=== PATIENT | female | born 1935 | race Asian ===

== ENCOUNTER 2016-07-24 17:14 | Inpatient (IN) | payer MEDICARE, OTHER ==
[2016-07-24] MEDS ORDERED: OMEPRAZOLE20 M3 PO (18:44)
[2016-07-24] MEDS ORDERED: ASPIRIN325 M3 PO (18:46)
[2016-07-24] MEDS ORDERED: COREG6.25 M1 PO (18:46)
[2016-07-24] MEDS ORDERED: NORVASC5 M2 PO (18:46)
[2016-07-24] MEDS ORDERED: LASIX80 M1 PO (18:47)
[2016-07-24] MEDS ORDERED: ZYLOPRIM100 M1 PO (18:47)
[2016-07-24] MEDS ORDERED: CELEXA20 M2 PO (18:47)
[2016-07-24] MEDS ORDERED: SYNTHROID100 MC1 PO (18:48)
[2016-07-24] MEDS ORDERED: VITAMIN D350000 UNI1 PO (18:48)
[2016-07-24] MEDS ORDERED: PREDNISONE2.5 M1 PO (18:49)
[2016-07-24] MEDS ORDERED: NEURONTIN100 M1 PO (18:52)
[2016-07-24] MEDS ORDERED: NOVOLOG FL100 UNIT/2 SC (19:01)
[2016-07-24] MEDS ORDERED: LEVEMIR FL100 UNIT/2 PO (19:02)
[2016-07-24 19:52] LABS: BASO % 0.1 % (0-2); EOS % 0.5 % (0-7); EOSINOPHIL ABSOLUTE COUNT 0.1 tho/cmm (0.0-0.7); HCT-HEMATOCRIT 31.8 % (34.0-49.0); HGB-HEMOGLOBIN 10.7 gm/dl (12.0-15.5); IMMATURE GRANULOCYTES ABSOLUTE 0.06 tho/cmm (0-0.03); IMMATURE GRANULOCYTES PERCENT 0.4 % (0-0.3); LYMPH % 5.6 % (20-45); LYMPH ABSOLUTE COUNT 0.8 tho/cmm (0.8-4.5); MCH (MEAN CORPUSCULAR HGB) 31.6 pg (28.0-32.0); MCHC MEAN CORPUSCULAR HGB CONC 33.6 % (32.0-36.0); MCV (MEAN CELL VOLUME) 93.8 fl (82.0-96.0); MONO % 4.6 % (0-12); MONOCYTE ABSOLUTE COUNT 0.7 tho/cmm (0.0-1.2); NEUTROPHIL ABSOLUTE COUNT 13.3 tho/cmm (1.6-8.0); NEUTROPHIL-AUTOMATED 13.3 tho/cmm (1.6-8.0); NEUTROPHILS % 88.8 % (40-80); PLATELET COUNT 242 tho/cmm (150-450); RED BLOOD COUNT 3.39 mil/cmm (4.00-5.20); WHITE BLOOD COUNT 14.9 tho/cmm (4.0-10.0)
[2016-07-24 20:06] LABS: ALB/GLOB RATIO 0.8 (0.8-2.0); ALKALINE PHOSPHATASE 86 U/L (33-138); ALT/SGPT 27 U/L (12-78); ANION GAP 16 mmol/L (0-20); AST/SGOT 20 U/L (10-40); BILIRUBIN,TOTAL 0.6 mg/dl (0-1.5); BLOOD UREA NITROGEN 100 mg/dl (6-24); CALCIUM 6.8 mg/dl (8.5-10.5); CARBON DIOXIDE-VENOUS 26 mmol/L (22-32); CHLORIDE 94 mmol/l (96-110); CREATININE 3.59 mg/dl (0.50-1.10); GLUCOSE 429 mg/dL (70-110); MAGNESIUM 2.4 mg/dl (1.3-2.6); POTASSIUM 4.9 mmol/L (3.7-5.1); SODIUM 131 mmol/L (135-145); eGFR VALUE FOR BLACK 13 mL/Min
[2016-07-24 20:13] LABS: TSH-THYROID STIMULATING HORM. 1.22 uIU/ml (0.40-3.80)
[2016-07-25 06:56] LABS: BASO % 0.2 % (0-2); EOS % 1.5 % (0-7); EOSINOPHIL ABSOLUTE COUNT 0.2 tho/cmm (0.0-0.7); HCT-HEMATOCRIT 30.6 % (34.0-49.0); HGB-HEMOGLOBIN 10.3 gm/dl (12.0-15.5); IMMATURE GRANULOCYTES ABSOLUTE 0.06 tho/cmm (0-0.03); IMMATURE GRANULOCYTES PERCENT 0.5 % (0-0.3); LYMPH % 7.8 % (20-45); MCH (MEAN CORPUSCULAR HGB) 31.6 pg (28.0-32.0); MCHC MEAN CORPUSCULAR HGB CONC 33.7 % (32.0-36.0); MCV (MEAN CELL VOLUME) 93.9 fl (82.0-96.0); MEAN PLATELET VOLUME 10.2 cmc (9.4-12.4); MONO % 5.5 % (0-12); MONOCYTE ABSOLUTE COUNT 0.7 tho/cmm (0.0-1.2); NEUTROPHIL ABSOLUTE COUNT 10.9 tho/cmm (1.6-8.0); NEUTROPHIL-AUTOMATED 10.9 tho/cmm (1.6-8.0); NEUTROPHILS % 84.5 % (40-80); PLATELET COUNT 245 tho/cmm (150-450); RED BLOOD COUNT 3.26 mil/cmm (4.00-5.20); RED CELL DISTRIBUTION WIDTH 14.2 % (12.4-16.4); WHITE BLOOD COUNT 12.9 tho/cmm (4.0-10.0)
[2016-07-25 06:58] LABS: ALBUMIN 2.9 g/dl (3.5-5.0); ANION GAP 14 mmol/L (0-20); BLOOD UREA NITROGEN 93 mg/dl (6-24); CALCIUM 7.4 mg/dl (8.5-10.5); CARBON DIOXIDE-VENOUS 27 mmol/L (22-32); CHLORIDE 97 mmol/l (96-110); CREATININE 3.48 mg/dl (0.50-1.10); GLUCOSE 215 mg/dL (70-110); PHOSPHOROUS 4.9 mg/dl (2.5-4.9); POTASSIUM 4.1 mmol/L (3.7-5.1); SODIUM 134 mmol/L (135-145); eGFR VALUE FOR BLACK 13 mL/Min
[2016-07-25 08:45] LABS: BODY FLUID APPEARANCE HAZY (CLEAR); BODY FLUID COLOR YELLOW (COLORLESS); BODY FLUID TYPE DIALYSATE FLUID; BODY FLUID VOLUME 50 ml; BODY FLUID WBC COUNT 100 cmm
[2016-07-25 08:47] LABS: BODY FLUID LYMPHOCYTES 77 %; BODY FLUID MACROPHAGES 21 %; BODY FLUID NEUTROPHILS 2 %
[2016-07-25 14:23] LABS: BODY FLUID RBC COUNT <1000 cmm (0)
[2016-07-26 05:36] LABS: BODY FLUID APPEARANCE CLEAR (CLEAR); BODY FLUID COLOR COLORLESS (COLORLESS); BODY FLUID RBC COUNT <1000 cmm (0); BODY FLUID TYPE DIALYSATE; BODY FLUID VOLUME 3200 ml; BODY FLUID WBC COUNT 8 cmm
[2016-07-26 06:02] LABS: BODY FLUID LYMPHOCYTES 8 %; BODY FLUID MACROPHAGES 15 %; BODY FLUID MESOTHELIAL CELLS 60 %; BODY FLUID NEUTROPHILS 17 %
[2016-07-26 07:37] LABS: ANION GAP 13 mmol/L (0-20); BLOOD UREA NITROGEN 86 mg/dl (6-24); CALCIUM 7.5 mg/dl (8.5-10.5); CARBON DIOXIDE-VENOUS 30 mmol/L (22-32); CHLORIDE 98 mmol/l (96-110); CREATININE 3.48 mg/dl (0.50-1.10); GLUCOSE 245 mg/dL (70-110); PHOSPHOROUS 5.1 mg/dl (2.5-4.9); POTASSIUM 3.7 mmol/L (3.7-5.1); SODIUM 137 mmol/L (135-145); eGFR VALUE FOR BLACK 13 mL/Min
[2016-07-26] MEDS ORDERED: PLAQUENIL200 M1 PO (15:51)
[2016-07-26] MEDS ORDERED: COZAAR50 M1 PO (15:52)
[2016-07-27 06:47] LABS: ANION GAP 11 mmol/L (0-20); BLOOD UREA NITROGEN 78 mg/dl (6-24); CALCIUM 7.5 mg/dl (8.5-10.5); CARBON DIOXIDE-VENOUS 34 mmol/L (22-32); CHLORIDE 98 mmol/l (96-110); GLUCOSE 141 mg/dL (70-110); MAGNESIUM 2.4 mg/dl (1.3-2.6); PHOSPHOROUS 4.8 mg/dl (2.5-4.9); POTASSIUM 3.7 mmol/L (3.7-5.1); SODIUM 139 mmol/L (135-145)
[2016-07-27 07:18] LABS: CREATININE 3.73 mg/dl (0.50-1.10); eGFR VALUE FOR BLACK 12 mL/Min
[2016-07-28 05:10] LABS: HGB-HEMOGLOBIN 11.3 gm/dl (12.0-15.5); PLATELET COUNT 264 tho/cmm (150-450)
[2016-07-28 05:21] LABS: ANION GAP 11 mmol/L (0-20); BLOOD UREA NITROGEN 69 mg/dl (6-24); CALCIUM 7.4 mg/dl (8.5-10.5); CARBON DIOXIDE-VENOUS 32 mmol/L (22-32); CHLORIDE 101 mmol/l (96-110); CREATININE 3.76 mg/dl (0.50-1.10); GLUCOSE 138 mg/dL (70-110); MAGNESIUM 2.2 mg/dl (1.3-2.6); PHOSPHOROUS 4.5 mg/dl (2.5-4.9); POTASSIUM 3.9 mmol/L (3.7-5.1); SODIUM 140 mmol/L (135-145); eGFR VALUE FOR BLACK 12 mL/Min
[2016-07-28] MEDS ORDERED: ASPIRIN81 M1 PO (15:18)
[2016-07-28] MEDS ORDERED: [UNRECOGNIZED DRUG - OTHER] IR (15:23)
[2016-07-28] MEDS ORDERED: DIANEAL IR ×2 (15:23)
[2016-07-28] MEDS ORDERED: [UNRECOGNIZED DRUG - OTHER] IR (15:23)
== END 2016-07-28 16:34 | DRG 291 ==
LOC: CAR1 17:14 → 5WF 21:50
PROVIDERS: Internal Medicine Nephrology; Nurse Practitioner; Nurse Practitioner Family; ADMIT Internal Medicine Interventional Cardiology
DX: I13.2 Hypertensive heart and chronic kidney disease with heart failure and with stage 5 chronic kidney disease, or end stage renal disease (principal); I50.33 Acute on chronic diastolic (congestive) heart failure; N18.6 End stage renal disease; E11.22 Type 2 diabetes mellitus with diabetic chronic kidney disease; R06.00 Dyspnea, unspecified; I27.2 Other secondary pulmonary hypertension; E11.65 Type 2 diabetes mellitus with hyperglycemia; E87.1 Hypo-osmolality and hyponatremia; E03.9 Hypothyroidism, unspecified; D63.1 Anemia in chronic kidney disease; E83.51 Hypocalcemia; I07.1 Rheumatic tricuspid insufficiency; M10.9 Gout, unspecified; E78.5 Hyperlipidemia, unspecified; I25.10 Atherosclerotic heart disease of native coronary artery without angina pectoris; E66.9 Obesity, unspecified; Z95.2 Presence of prosthetic heart valve
CPT/HCPCS: G8988-GO-CJ; G8989-GO-CJ; J0610; J1650; J1815; J1940; J7512

== ENCOUNTER 2016-09-21 03:47 | Inpatient (IN) | payer MEDICARE, OTHER ==
[~2016-09-21 03:47] MED LIST: ASPIRIN325 M3 PO; ASPIRIN81 M1 PO; CELEXA20 M2 PO; COREG6.25 M1 PO; COZAAR50 M1 PO; DIANEAL IR; LASIX80 M1 PO; LEVEMIR FL100 UNIT/2 PO; NEURONTIN100 M1 PO; NORVASC5 M2 PO; NOVOLOG FL100 UNIT/2 SC; OMEPRAZOLE20 M3 PO; PLAQUENIL200 M1 PO; PREDNISONE2.5 M1 PO; SYNTHROID100 MC1 PO; VITAMIN D350000 UNI1 PO; ZYLOPRIM100 M1 PO; [UNRECOGNIZED DRUG - OTHER] IR; [UNRECOGNIZED DRUG - OTHER] IR
[2016-09-21] MEDS ORDERED: ASPIRIN325 M3 PO (03:53)
[2016-09-21 07:13] LABS: BASO % 0.3 % (0-2); BASO ABSOLUTE COUNT 0.1 tho/cmm (0.0-0.2); EOS % 1.8 % (0-7); EOSINOPHIL ABSOLUTE COUNT 0.3 tho/cmm (0.0-0.7); HCT-HEMATOCRIT 33.3 % (34.0-49.0); HGB-HEMOGLOBIN 10.8 gm/dl (12.0-15.5); IMMATURE GRANULOCYTES PERCENT 1.1 % (0-0.3); LYMPH % 8.8 % (20-45); LYMPH ABSOLUTE COUNT 1.6 tho/cmm (0.8-4.5); MCH (MEAN CORPUSCULAR HGB) 31.9 pg (28.0-32.0); MCHC MEAN CORPUSCULAR HGB CONC 32.4 % (32.0-36.0); MCV (MEAN CELL VOLUME) 98.2 fl (82.0-96.0); MEAN PLATELET VOLUME 9.1 cmc (9.4-12.4); MONOCYTE ABSOLUTE COUNT 0.9 tho/cmm (0.0-1.2); NEUTROPHIL ABSOLUTE COUNT 15.2 tho/cmm (1.6-8.0); NEUTROPHIL-AUTOMATED 15.2 tho/cmm (1.6-8.0); PLATELET COUNT 389 tho/cmm (150-450); RED BLOOD COUNT 3.39 mil/cmm (4.00-5.20); RED CELL DISTRIBUTION WIDTH 13.6 % (12.4-16.4); WHITE BLOOD COUNT 18.3 tho/cmm (4.0-10.0)
[2016-09-21 07:26] LABS: ANION GAP 13 mmol/L (0-20); BLOOD UREA NITROGEN 72 mg/dl (6-24); CALCIUM 8.7 mg/dl (8.5-10.5); CARBON DIOXIDE-VENOUS 31 mmol/L (22-32); CHLORIDE 100 mmol/l (96-110); CREATININE 2.22 mg/dl (0.50-1.10); GLUCOSE 78 mg/dL (70-110); MAGNESIUM 2.5 mg/dl (1.8-2.6); POTASSIUM 4.7 mmol/L (3.7-5.1); SODIUM 139 mmol/L (135-145); eGFR VALUE FOR BLACK 23 mL/Min
[2016-09-21 07:35] LABS: ESR-ERYTHROCYTE SED RATE >140 mm/hr (0-30)
[2016-09-21 07:54] LABS: PROCALCITONIN 0.41 ng/ml (0.05-0.09)
[2016-09-21] MEDS ORDERED: CELEBREX200 M1 PO (13:15)
--- NOTE | 2016-09-21 19:26 | NUR ---
VIRTUAL CARE NOTE: ASSESSMENT DEFERRED. PT. SLEEPING.
[2016-09-22 04:58] LABS: BASO % 0.2 % (0-2); BASO ABSOLUTE COUNT 0.1 tho/cmm (0.0-0.2); EOS % 1.3 % (0-7); EOSINOPHIL ABSOLUTE COUNT 0.3 tho/cmm (0.0-0.7); HCT-HEMATOCRIT 35.6 % (34.0-49.0); HGB-HEMOGLOBIN 11.7 gm/dl (12.0-15.5); IMMATURE GRANULOCYTES ABSOLUTE 0.23 tho/cmm (0-0.03); IMMATURE GRANULOCYTES PERCENT 0.9 % (0-0.3); LYMPH % 5.2 % (20-45); LYMPH ABSOLUTE COUNT 1.4 tho/cmm (0.8-4.5); MCH (MEAN CORPUSCULAR HGB) 32.5 pg (28.0-32.0); MCHC MEAN CORPUSCULAR HGB CONC 32.9 % (32.0-36.0); MCV (MEAN CELL VOLUME) 98.9 fl (82.0-96.0); MEAN PLATELET VOLUME 8.9 cmc (9.4-12.4); MONO % 4.9 % (0-12); MONOCYTE ABSOLUTE COUNT 1.3 tho/cmm (0.0-1.2); NEUTROPHIL ABSOLUTE COUNT 22.8 tho/cmm (1.6-8.0); NEUTROPHIL-AUTOMATED 22.8 tho/cmm (1.6-8.0); NEUTROPHILS % 87.5 % (40-80); PLATELET COUNT 387 tho/cmm (150-450); RED CELL DISTRIBUTION WIDTH 13.7 % (12.4-16.4)
[2016-09-22 05:11] LABS: ALBUMIN 2.2 g/dl (3.5-5.0); ANION GAP 12 mmol/L (0-20); BLOOD UREA NITROGEN 61 mg/dl (6-24); CALCIUM 8.7 mg/dl (8.5-10.5); CARBON DIOXIDE-VENOUS 30 mmol/L (22-32); CHLORIDE 102 mmol/l (96-110); CREATININE 2.28 mg/dl (0.50-1.10); GLUCOSE 78 mg/dL (70-110); MAGNESIUM 2.4 mg/dl (1.8-2.6); PHOSPHOROUS 4.1 mg/dl (2.5-4.9); POTASSIUM 4.1 mmol/L (3.7-5.1); SODIUM 140 mmol/L (135-145); eGFR VALUE FOR BLACK 22 mL/Min
[2016-09-22 08:16] LABS: BODY FLUID APPEARANCE CLEAR (CLEAR); BODY FLUID COLOR COLORLESS (COLORLESS); BODY FLUID RBC COUNT <1000 cmm (0); BODY FLUID TYPE DIALYSATE; BODY FLUID VOLUME 3000 ml; BODY FLUID WBC COUNT 14 cmm
[2016-09-22 10:12] LABS: BODY FLUID APPEARANCE CLEAR (CLEAR); BODY FLUID COLOR COLORLESS (COLORLESS); BODY FLUID TYPE DIALYSATE; BODY FLUID VOLUME 1300 ml
[2016-09-22 10:13] LABS: BODY FLUID RBC COUNT <1000 cmm (0); BODY FLUID WBC COUNT 9 cmm
[2016-09-22 13:14] LABS: BODY FLUID LYMPHOCYTES 32 %; BODY FLUID MACROPHAGES 23 %; BODY FLUID MESOTHELIAL CELLS 11 %; BODY FLUID NEUTROPHILS 34 %
--- NOTE | 2016-09-22 13:20 | NUR ---
VIRTUAL CARE NOTE: SPOKE W/ DAUGHTER AT THIS TIME. PER DAUGHTER, PT DOES NOT LIKE TO TAKE HER MEDICATIONS SHE IS SUPPOSED TO [place] BECAUSE SHE HAS TO GO TO THE [place]. DAUGHTER STATES THAT SHE IS PT'S CAREGIVER AND LIVE NEXT DOOR, PT HAS HAD HHC IN THE PAST AND REQUEST HHC AT TIME OF DC. STERLING W/ ADELFO NOTIFIED
[2016-09-23 05:59] LABS: HCT-HEMATOCRIT 36.7 % (34.0-49.0); HGB-HEMOGLOBIN 12.2 gm/dl (12.0-15.5); MCH (MEAN CORPUSCULAR HGB) 32.8 pg (28.0-32.0); MCHC MEAN CORPUSCULAR HGB CONC 33.2 % (32.0-36.0); MCV (MEAN CELL VOLUME) 98.7 fl (82.0-96.0); MEAN PLATELET VOLUME 9.3 cmc (9.4-12.4); PLATELET COUNT 353 tho/cmm (150-450); RED BLOOD COUNT 3.72 mil/cmm (4.00-5.20); RED CELL DISTRIBUTION WIDTH 13.9 % (12.4-16.4)
[2016-09-23 06:22] LABS: WHITE BLOOD COUNT 64.2 tho/cmm (4.0-10.0)
[2016-09-23 06:42] LABS: BLOOD UREA NITROGEN 54 mg/dl (6-24); CALCIUM 8.4 mg/dl (8.5-10.5); CARBON DIOXIDE-VENOUS 26 mmol/L (22-32); CHLORIDE 96 mmol/l (96-110); PHOSPHOROUS 4.6 mg/dl (2.5-4.9); SODIUM 131 mmol/L (135-145)
[2016-09-23 06:44] LABS: ANION GAP 14 mmol/L (0-20); CREATININE 3.09 mg/dl (0.50-1.10); GLUCOSE 179 mg/dL (70-110); eGFR VALUE FOR BLACK 15 mL/Min
[2016-09-23 06:46] LABS: POTASSIUM 5.4 mmol/L (3.7-5.1)
[2016-09-23 06:47] LABS: MAGNESIUM 2.1 mg/dl (1.8-2.6)
[2016-09-23 12:25] LABS: WHITE BLOOD COUNT 65.7 tho/cmm (4.0-10.0)
[2016-09-23 13:37] LABS: BAND % 18 % (0-20); BAND ABSOLUTE COUNT 11.6 tho/cmm (0-2.0)
[2016-09-23] MEDS ORDERED: CELEBREX200 M1 PO (16:07)
--- NOTE | 2016-09-23 21:51 | NUR ---
VIRTUAL CARE NOTE: ASSESSMENT DEFERRED. PT EITHER SLEEPING OR WITH STAFF. WILL CONTINUE WITH CHART REVIEW.
[2016-09-24 05:32] LABS: ALBUMIN 1.9 g/dl (3.5-5.0); BLOOD UREA NITROGEN 58 mg/dl (6-24); CALCIUM 7.9 mg/dl (8.5-10.5); CARBON DIOXIDE-VENOUS 28 mmol/L (22-32); CHLORIDE 91 mmol/l (96-110); PHOSPHOROUS 5.3 mg/dl (2.5-4.9); SODIUM 131 mmol/L (135-145); eGFR VALUE FOR BLACK 11 mL/Min
[2016-09-24 05:41] LABS: ANION GAP 16 mmol/L (0-20); CREATININE 4.23 mg/dl (0.50-1.10); GLUCOSE 271 mg/dL (70-110); POTASSIUM 4.4 mmol/L (3.7-5.1)
[2016-09-24 05:51] LABS: BASO % 0.1 % (0-2); EOS % 0.1 % (0-7); HCT-HEMATOCRIT 34.6 % (34.0-49.0); HGB-HEMOGLOBIN 11.3 gm/dl (12.0-15.5); IMMATURE GRANULOCYTES ABSOLUTE 0.68 tho/cmm (0-0.03); IMMATURE GRANULOCYTES PERCENT 1.2 % (0-0.3); LYMPH % 2.8 % (20-45); LYMPH ABSOLUTE COUNT 1.5 tho/cmm (0.8-4.5); MCH (MEAN CORPUSCULAR HGB) 32.1 pg (28.0-32.0); MCHC MEAN CORPUSCULAR HGB CONC 32.7 % (32.0-36.0); MCV (MEAN CELL VOLUME) 98.3 fl (82.0-96.0); MEAN PLATELET VOLUME 9.8 cmc (9.4-12.4); MONO % 2.3 % (0-12); MONOCYTE ABSOLUTE COUNT 1.3 tho/cmm (0.0-1.2); NEUTROPHIL ABSOLUTE COUNT 51.8 tho/cmm (1.6-8.0); NEUTROPHILS % 93.5 % (40-80); PLATELET COUNT 365 tho/cmm (150-450); RED BLOOD COUNT 3.52 mil/cmm (4.00-5.20); RED CELL DISTRIBUTION WIDTH 13.9 % (12.4-16.4)
[2016-09-24 06:03] LABS: NEUTROPHIL-AUTOMATED 51.8 tho/cmm (1.6-8.0)
[2016-09-24 06:04] LABS: WHITE BLOOD COUNT 55.3 tho/cmm (4.0-10.0)
[2016-09-24 21:52] LABS: BODY FLUID APPEARANCE CLEAR (CLEAR); BODY FLUID COLOR COLORLESS (COLORLESS); BODY FLUID TYPE PERITONEAL DIALYSATE; BODY FLUID VOLUME 2000 ml
[2016-09-24 21:53] LABS: BODY FLUID RBC COUNT <1000 cmm (0); BODY FLUID WBC COUNT 3 cmm
[2016-09-24 22:40] LABS: BODY FLUID LYMPHOCYTES 30 %; BODY FLUID MACROPHAGES 51 %; BODY FLUID NEUTROPHILS 19 %
[2016-09-25 06:03] LABS: BASO % 0.1 % (0-2); EOS % 0.5 % (0-7); EOSINOPHIL ABSOLUTE COUNT 0.2 tho/cmm (0.0-0.7); HCT-HEMATOCRIT 34.1 % (34.0-49.0); HGB-HEMOGLOBIN 11.5 gm/dl (12.0-15.5); LYMPH % 2.9 % (20-45); LYMPH ABSOLUTE COUNT 1.1 tho/cmm (0.8-4.5); MCHC MEAN CORPUSCULAR HGB CONC 33.7 % (32.0-36.0); MCV (MEAN CELL VOLUME) 97.7 fl (82.0-96.0); MEAN PLATELET VOLUME 9.6 cmc (9.4-12.4); MONOCYTE ABSOLUTE COUNT 1.2 tho/cmm (0.0-1.2); NEUTROPHILS % 92.5 % (40-80); PLATELET COUNT 336 tho/cmm (150-450); RED BLOOD COUNT 3.49 mil/cmm (4.00-5.20); RED CELL DISTRIBUTION WIDTH 13.7 % (12.4-16.4)
[2016-09-25 06:09] LABS: WHITE BLOOD COUNT 39.9 tho/cmm (4.0-10.0)
[2016-09-25 06:17] LABS: ANION GAP 14 mmol/L (0-20); BLOOD UREA NITROGEN 62 mg/dl (6-24); CARBON DIOXIDE-VENOUS 27 mmol/L (22-32); CHLORIDE 90 mmol/l (96-110); CREATININE 4.93 mg/dl (0.50-1.10); GLUCOSE 219 mg/dL (70-110); POTASSIUM 3.9 mmol/L (3.7-5.1); SODIUM 127 mmol/L (135-145); eGFR VALUE FOR BLACK 9 mL/Min
[2016-09-25 07:38] LABS: WBC MORPHOLOGY TOXIC GRANULATION
--- NOTE | 2016-09-25 12:15 | NUR ---
VIRTUAL CARE NOTE: PT SITTING ON CHAIR, EATING LUNCH, CAN'T HEAR VN WELL. PT WANTS TO HAVE WATER, VN CHECKED WITH FLOOR STAFF, PT IS ON FLUILD RESTRICTION AND CAN'T HAVE MORE FLUILD AT THIS TIME. FLOOR NURSE INFORMED PT OF THIS.
--- NOTE | 2016-09-25 18:48 | NUR ---
VIRTUAL CARE NOTE: SLEEPING ASSESSMENT DEFERRED.
[2016-09-26 06:32] LABS: BASO % 0.1 % (0-2); BASO ABSOLUTE COUNT 0.1 tho/cmm (0.0-0.2); EOS % 0.4 % (0-7); EOSINOPHIL ABSOLUTE COUNT 0.2 tho/cmm (0.0-0.7); HCT-HEMATOCRIT 34.3 % (34.0-49.0); HGB-HEMOGLOBIN 11.4 gm/dl (12.0-15.5); IMMATURE GRANULOCYTES ABSOLUTE 0.43 tho/cmm (0-0.03); LYMPH % 2.3 % (20-45); MCH (MEAN CORPUSCULAR HGB) 32.5 pg (28.0-32.0); MCHC MEAN CORPUSCULAR HGB CONC 33.2 % (32.0-36.0); MCV (MEAN CELL VOLUME) 97.7 fl (82.0-96.0); MEAN PLATELET VOLUME 9.7 cmc (9.4-12.4); MONO % 2.2 % (0-12); NEUTROPHIL ABSOLUTE COUNT 41.4 tho/cmm (1.6-8.0); NEUTROPHIL-AUTOMATED 41.4 tho/cmm (1.6-8.0); PLATELET COUNT 330 tho/cmm (150-450); RED BLOOD COUNT 3.51 mil/cmm (4.00-5.20); RED CELL DISTRIBUTION WIDTH 13.7 % (12.4-16.4)
[2016-09-26 06:45] LABS: ANION GAP 16 mmol/L (0-20); BLOOD UREA NITROGEN 61 mg/dl (6-24); CARBON DIOXIDE-VENOUS 26 mmol/L (22-32); CHLORIDE 90 mmol/l (96-110); CREATININE 5.29 mg/dl (0.50-1.10); POTASSIUM 3.7 mmol/L (3.7-5.1); SODIUM 128 mmol/L (135-145); eGFR VALUE FOR BLACK 8 mL/Min
[2016-09-26 06:46] LABS: GLUCOSE 377 mg/dL (70-110)
[2016-09-26 17:36] LABS: ALB/GLOB RATIO 0.2 (0.8-2.0); ALBUMIN 1.7 g/dl (3.5-5.0); BILIRUBIN,DIRECT 0.8 mg/dl (0.0-0.3); BILIRUBIN,INDIRECT 0.3 mg/dL (0.0-1.0); BILIRUBIN,TOTAL 1.1 mg/dl (0-1.5)
[2016-09-27 05:45] LABS: ANION GAP 16 mmol/L (0-20); BLOOD UREA NITROGEN 53 mg/dl (6-24); CARBON DIOXIDE-VENOUS 25 mmol/L (22-32); CHLORIDE 92 mmol/l (96-110); MAGNESIUM 1.8 mg/dl (1.8-2.6); PHOSPHOROUS 3.9 mg/dl (2.5-4.9); POTASSIUM 3.5 mmol/L (3.7-5.1); SODIUM 129 mmol/L (135-145); eGFR VALUE FOR BLACK 9 mL/Min
[2016-09-27 05:46] LABS: GLUCOSE 174 mg/dL (70-110)
[2016-09-27 12:05] LABS: BASO % 0.1 % (0-2); BASO ABSOLUTE COUNT 0.1 tho/cmm (0.0-0.2); EOS % 0.6 % (0-7); EOSINOPHIL ABSOLUTE COUNT 0.3 tho/cmm (0.0-0.7); HCT-HEMATOCRIT 33.2 % (34.0-49.0); HGB-HEMOGLOBIN 11.3 gm/dl (12.0-15.5); IMMATURE GRANULOCYTES ABSOLUTE 0.96 tho/cmm (0-0.03); IMMATURE GRANULOCYTES PERCENT 1.8 % (0-0.3); LYMPH % 1.9 % (20-45); MCH (MEAN CORPUSCULAR HGB) 33.1 pg (28.0-32.0); MCV (MEAN CELL VOLUME) 97.4 fl (82.0-96.0); MEAN PLATELET VOLUME 9.7 cmc (9.4-12.4); MONO % 1.8 % (0-12); NEUTROPHIL ABSOLUTE COUNT 49.6 tho/cmm (1.6-8.0); NEUTROPHIL-AUTOMATED 49.6 tho/cmm (1.6-8.0); NEUTROPHILS % 93.8 % (40-80); PLATELET COUNT 320 tho/cmm (150-450); RED BLOOD COUNT 3.41 mil/cmm (4.00-5.20); RED CELL DISTRIBUTION WIDTH 13.6 % (12.4-16.4)
--- NOTE | 2016-09-27 15:45 | NUR ---
virtual care note: checked w/ pt at this time. she is not able to offer much in conversation, unsure if it is because she cannot hear VN or doesn't understand. will check w/ her bedside nurse. no family present at this current time. pt puts up the head of bed while I am checking in on her. She is only answering yes/no questions at this time. will continue to monitor. oxygen in place. electronic chart reviewed.
--- NOTE | 2016-09-27 21:59 | NUR ---
VN ROUNDING-DEFERRED AT THIS TIME PATIENT IS SLEEPING
[2016-09-28 05:08] LABS: BASO % 0.1 % (0-2); EOS % 0.7 % (0-7); EOSINOPHIL ABSOLUTE COUNT 0.3 tho/cmm (0.0-0.7); HCT-HEMATOCRIT 34.6 % (34.0-49.0); HGB-HEMOGLOBIN 11.3 gm/dl (12.0-15.5); IMMATURE GRANULOCYTES ABSOLUTE 1.89 tho/cmm (0-0.03); IMMATURE GRANULOCYTES PERCENT 4.5 % (0-0.3); LYMPH ABSOLUTE COUNT 0.9 tho/cmm (0.8-4.5); MCH (MEAN CORPUSCULAR HGB) 31.8 pg (28.0-32.0); MCHC MEAN CORPUSCULAR HGB CONC 32.7 % (32.0-36.0); MCV (MEAN CELL VOLUME) 97.5 fl (82.0-96.0); MEAN PLATELET VOLUME 9.9 cmc (9.4-12.4); MONO % 1.6 % (0-12); MONOCYTE ABSOLUTE COUNT 0.7 tho/cmm (0.0-1.2); NEUTROPHIL ABSOLUTE COUNT 38.6 tho/cmm (1.6-8.0); NEUTROPHIL-AUTOMATED 38.6 tho/cmm (1.6-8.0); NEUTROPHILS % 91.1 % (40-80); PLATELET COUNT 322 tho/cmm (150-450); RED BLOOD COUNT 3.55 mil/cmm (4.00-5.20); RED CELL DISTRIBUTION WIDTH 13.5 % (12.4-16.4)
[2016-09-28 05:15] LABS: BLOOD UREA NITROGEN 51 mg/dl (6-24); CALCIUM 8.3 mg/dl (8.5-10.5); CARBON DIOXIDE-VENOUS 25 mmol/L (22-32); CHLORIDE 88 mmol/l (96-110); CREATININE 5.14 mg/dl (0.50-1.10); SODIUM 126 mmol/L (135-145); eGFR VALUE FOR BLACK 8 mL/Min
[2016-09-28 05:17] LABS: ANION GAP 17 mmol/L (0-20); GLUCOSE 286 mg/dL (70-110); POTASSIUM 4.1 mmol/L (3.7-5.1)
[2016-09-28 05:26] LABS: WHITE BLOOD COUNT 42.3 tho/cmm (4.0-10.0)
--- NOTE | 2016-09-28 15:40 | NUR ---
VIRTUAL CARE NOTE: ATTEMPTED TO VISIT W/ PT. NO FAMILY PRESENT. SHE IS RESTING IN BED. UNABLE TO ANSWER, PT IS HARD OF HEARING. WILL CONTINUE TO MONITOR. ELECTRONIC CHART REVIEWED.
--- NOTE | 2016-09-28 21:20 | NUR ---
VN ROUNDING-TRIED ROUNDING ON PATIENT BUT SHE COULD NOT HEAR ME AND SAID SHE WAS TRYING TO SLEEP.
[2016-09-29 05:32] LABS: ANION GAP 16 mmol/L (0-20); BLOOD UREA NITROGEN 51 mg/dl (6-24); CALCIUM 8.4 mg/dl (8.5-10.5); CARBON DIOXIDE-VENOUS 27 mmol/L (22-32); CHLORIDE 88 mmol/l (96-110); CREATININE 5.14 mg/dl (0.50-1.10); GLUCOSE 249 mg/dL (70-110); SODIUM 128 mmol/L (135-145); eGFR VALUE FOR BLACK 8 mL/Min
[2016-09-29 05:34] LABS: POTASSIUM 3.1 mmol/L (3.7-5.1)
--- NOTE | 2016-09-29 21:52 | NUR ---
VIRTUAL CARE NOTE: ASSESSMENT DEFERRED. PT. SLEEPING.
[2016-09-30 05:09] LABS: HCT-HEMATOCRIT 32.1 % (34.0-49.0); HGB-HEMOGLOBIN 10.9 gm/dl (12.0-15.5); MCH (MEAN CORPUSCULAR HGB) 32.2 pg (28.0-32.0); MCV (MEAN CELL VOLUME) 94.7 fl (82.0-96.0); MEAN PLATELET VOLUME 9.5 cmc (9.4-12.4); NEUTROPHIL-AUTOMATED 22.8 tho/cmm (1.6-8.0); PLATELET COUNT 325 tho/cmm (150-450); RED BLOOD COUNT 3.39 mil/cmm (4.00-5.20); RED CELL DISTRIBUTION WIDTH 13.5 % (12.4-16.4); WHITE BLOOD COUNT 28.3 tho/cmm (4.0-10.0)
[2016-09-30 05:27] LABS: ANION GAP 17 mmol/L (0-20); BLOOD UREA NITROGEN 57 mg/dl (6-24); CALCIUM 8.3 mg/dl (8.5-10.5); CARBON DIOXIDE-VENOUS 26 mmol/L (22-32); CHLORIDE 88 mmol/l (96-110); CREATININE 5.12 mg/dl (0.50-1.10); GLUCOSE 240 mg/dL (70-110); PHOSPHOROUS 4.9 mg/dl (2.5-4.9); POTASSIUM 3.6 mmol/L (3.7-5.1); SODIUM 127 mmol/L (135-145); eGFR VALUE FOR BLACK 8 mL/Min
[2016-09-30 05:58] LABS: BAND % 5 % (0-20); BAND ABSOLUTE COUNT 1.4 tho/cmm (0-2.0); EOSINOPHIL % 2 % (0-7)
--- NOTE | 2016-09-30 21:09 | NUR ---
VIRTUAL CARE NOTE: PT. SLEEPING ASSESSMENT DEFERRED.
[2016-10-01 05:36] LABS: BLOOD UREA NITROGEN 57 mg/dl (6-24); CALCIUM 8.3 mg/dl (8.5-10.5); CARBON DIOXIDE-VENOUS 24 mmol/L (22-32); CHLORIDE 94 mmol/l (96-110); CREATININE 4.85 mg/dl (0.50-1.10); SODIUM 129 mmol/L (135-145); eGFR VALUE FOR BLACK 9 mL/Min
[2016-10-01 05:38] LABS: ANION GAP 15 mmol/L (0-20); GLUCOSE 94 mg/dL (70-110); POTASSIUM 3.8 mmol/L (3.7-5.1)
[2016-10-02 05:15] LABS: HCT-HEMATOCRIT 31.6 % (34.0-49.0); HGB-HEMOGLOBIN 10.2 gm/dl (12.0-15.5); MCH (MEAN CORPUSCULAR HGB) 31.9 pg (28.0-32.0); MCHC MEAN CORPUSCULAR HGB CONC 32.3 % (32.0-36.0); MCV (MEAN CELL VOLUME) 98.8 fl (82.0-96.0); MEAN PLATELET VOLUME 9.4 cmc (9.4-12.4); NEUTROPHIL-AUTOMATED 15.4 tho/cmm (1.6-8.0); PLATELET COUNT 279 tho/cmm (150-450); WHITE BLOOD COUNT 22.3 tho/cmm (4.0-10.0)
[2016-10-02 05:28] LABS: ANION GAP 16 mmol/L (0-20); BLOOD UREA NITROGEN 57 mg/dl (6-24); CALCIUM 8.1 mg/dl (8.5-10.5); CARBON DIOXIDE-VENOUS 27 mmol/L (22-32); CHLORIDE 96 mmol/l (96-110); GLUCOSE 100 mg/dL (70-110); MAGNESIUM 1.9 mg/dl (1.8-2.6); PHOSPHOROUS 4.9 mg/dl (2.5-4.9); POTASSIUM 3.6 mmol/L (3.7-5.1); SODIUM 135 mmol/L (135-145); eGFR VALUE FOR BLACK 11 mL/Min
[2016-10-02 10:41] LABS: BAND % 14 % (0-20); BAND ABSOLUTE COUNT 3.1 tho/cmm (0-2.0); EOSINOPHIL % 3 % (0-7); WBC MORPHOLOGY TOXIC GRANULATION
--- NOTE | 2016-10-02 19:00 | NUR ---
174- [employer] SAID PT HAD 7 BEAT RUN OF [facility]- NONE SINCE [address] BERNABE RIBEIRO. NO CALL RETURNED. DISCUSSED REPAGING IF DR Garza DIDN'T RETURN CALL BY [phone] WITH BRIAN SPARKS RN
--- NOTE | 2016-10-03 20:28 | NUR ---
VIRTUAL CARE NOTE: ASSESSMENT DEFERRED. PT. SLEEPING.
--- NOTE | 2016-10-05 16:34 | NUR ---
VIRTUAL CARE NOTE: PT RESTING ON BED, CAN'T HEAR VIRTUAL NURSE, TV IS ON, NO FAMILY IN THE ROOM. CHART REVIEWED, ORDERS NOTED. PLAN DC TO [facility] TOMORROW.
[2016-10-06 05:39] LABS: BASO % 0.2 % (0-2); BASO ABSOLUTE COUNT 0.1 tho/cmm (0.0-0.2); EOSINOPHIL ABSOLUTE COUNT 0.3 tho/cmm (0.0-0.7); HCT-HEMATOCRIT 36.3 % (34.0-49.0); IMMATURE GRANULOCYTES ABSOLUTE 1.28 tho/cmm (0-0.03); IMMATURE GRANULOCYTES PERCENT 4.8 % (0-0.3); LYMPH % 4.9 % (20-45); LYMPH ABSOLUTE COUNT 1.3 tho/cmm (0.8-4.5); MCH (MEAN CORPUSCULAR HGB) 32.3 pg (28.0-32.0); MCHC MEAN CORPUSCULAR HGB CONC 33.1 % (32.0-36.0); MCV (MEAN CELL VOLUME) 97.6 fl (82.0-96.0); MEAN PLATELET VOLUME 10.2 cmc (9.4-12.4); MONO % 3.2 % (0-12); MONOCYTE ABSOLUTE COUNT 0.9 tho/cmm (0.0-1.2); NEUTROPHIL ABSOLUTE COUNT 23.1 tho/cmm (1.6-8.0); NEUTROPHIL-AUTOMATED 23.1 tho/cmm (1.6-8.0); NEUTROPHILS % 85.9 % (40-80); PLATELET COUNT 309 tho/cmm (150-450); RED BLOOD COUNT 3.72 mil/cmm (4.00-5.20); RED CELL DISTRIBUTION WIDTH 14.3 % (12.4-16.4); WHITE BLOOD COUNT 26.9 tho/cmm (4.0-10.0)
[2016-10-06 05:57] LABS: ALBUMIN 2.2 g/dl (3.5-5.0); ANION GAP 18 mmol/L (0-20); BLOOD UREA NITROGEN 63 mg/dl (6-24); CALCIUM 8.5 mg/dl (8.5-10.5); CARBON DIOXIDE-VENOUS 24 mmol/L (22-32); CHLORIDE 93 mmol/l (96-110); CREATININE 4.43 mg/dl (0.50-1.10); GLUCOSE 235 mg/dL (70-110); PHOSPHOROUS 6.4 mg/dl (2.5-4.9); POTASSIUM 3.4 mmol/L (3.7-5.1); SODIUM 132 mmol/L (135-145); eGFR VALUE FOR BLACK 10 mL/Min
--- NOTE | 2016-10-06 18:48 | NUR ---
VIRTUAL CARE NOTE: ASSESSMENT DEFERRED. PT. SLEEPING.
[2016-10-07] MEDS ORDERED: IPRAT-ALBUT 0.5-3 ML (12:25)
[2016-10-07] MEDS ORDERED: GENTAMICIN SUL3.5 GM TP (12:27)
[2016-10-07] MEDS ORDERED: GLUCAGEN1 MG/1 ML IM (13:26)
== END 2016-10-07 13:50 | DRG 291 ==
LOC: 5WD 03:47
PROVIDERS: Family Medicine; Internal Medicine Nephrology; Registered Nurse; ADMIT Hospitalist
DX: I50.33 Acute on chronic diastolic (congestive) heart failure (principal); N18.6 End stage renal disease; I12.0 Hypertensive chronic kidney disease with stage 5 chronic kidney disease or end stage renal disease; I27.2 Other secondary pulmonary hypertension; E11.9 Type 2 diabetes mellitus without complications; D63.1 Anemia in chronic kidney disease; I25.10 Atherosclerotic heart disease of native coronary artery without angina pectoris; D64.9 Anemia, unspecified; M10.9 Gout, unspecified; E03.9 Hypothyroidism, unspecified
CPT/HCPCS: J0456; J0690; J0696; J1815; J1940; J3480; J7040; J7050; P9047